=== PATIENT | male | born 1995 | race Caucasian/White ===

== ENCOUNTER 2020-09-06 15:03 | Emergency (ER) | payer SELFPAY ==
[2020-09-06] MEDS ORDERED: traMADol HCl 50 MG TAB ONE (15:33)
== END 2020-09-06 16:40 | disposition home or self-care (01) ==
LOC: ERS 15:03
DX: K03.81 Cracked tooth (principal); F17.290 Nicotine dependence, other tobacco product, uncomplicated
CPT/HCPCS: 99282